=== PATIENT | male | born 1975 | race Caucasian/White ===

== ENCOUNTER 2020-02-18 07:01 | Day surgery (SDC) | payer OTHER ==
[~2020-02-18 07:01] MED LIST: LACTATED RINGERS 1,000 ML IV ONE
[2020-02-18] MEDS ORDERED: MIDAZOLAM 2 MG/2 ML VIAL ONE ×2 (08:06→08:11)
[2020-02-18] MEDS ORDERED: fentaNYL 250 MCG/5 ML VIAL ONE (08:06)
[2020-02-18] MEDS ORDERED: LACTATED RINGERS 1,000 ML IV ONE (08:37)
[2020-02-18 08:50] VITALS: BP 105/60
== END 2020-02-18 07:02 | disposition home or self-care (01) ==
LOC: SDS 07:01
PROVIDERS: ATTEND Surgery
DX: Z12.11 Encounter for screening for malignant neoplasm of colon (principal); K64.8 Other hemorrhoids; Z80.0 Family history of malignant neoplasm of digestive organs
CPT/HCPCS: 45378; J3010; J7120